=== PATIENT | female | born 1945 | race Caucasian/White ===

== ENCOUNTER 2016-10-12 18:52 | Emergency (ER) | payer MEDICARE ==
[2016-10-12 20:29] VITALS: BP 152/92
--- NOTE | 2016-10-12 20:34 | ER Document Report ---
ED Medical Screen (RME) - General Stated Complaint: FEVER/HEADACHE Mode of Arrival: Ambulatory Information source: Patient Notes: 71-year-old female presents to the emergency department complaining of intermittently persistent chills, headache, dysuria, and lower back pain over the last 2 days. Reports similar symptoms usually due to UTIs. States has been taking Azo tabs at home with no improvement. I have greeted and performed a rapid initial assessment of this patient. A comprehensive ED assessment and evaluation of the patient, analysis of test results and completion of the medical decision making process will be conducted by additional ED providers. TRAVEL OUTSIDE OF THE [place] IN LAST 30 DAYS: No - Related Data Allergies/Adverse Reactions: amoxicillin [Amoxicillin] Allergy (Verified 10/12/16 20:29) ciprofloxacin [From Cipro] Allergy (Verified 10/12/16 20:29) ciprofloxacin HCl [From Cipro] Allergy (Verified 10/12/16 20:29) digoxin [Digoxin] Allergy (Verified 10/12/16 20:29) diphenhydramine HCl [From Benadryl] Allergy (Verified 10/12/16 20:29) epinephrine [Epinephrine] Allergy (Verified 10/12/16 20:29) erythromycin base [Erythromycin Base] Allergy (Verified 10/12/16 20:29) ibuprofen [From Advil] Allergy (Verified 10/12/16 20:29) iodine [Iodine] Allergy (Verified 10/12/16 20:29) losartan [Losartan] Allergy (Verified 10/12/16 20:29) methyldopa [Methyldopa] Allergy (Verified 10/12/16 20:29) naproxen [From Naprosyn] Allergy (Verified 10/12/16 20:29) NSAIDS (Non-Steroidal Anti-Inflamma [Nsaids] Allergy (Verified 10/12/16 20:29) Penicillins Allergy (Verified 10/12/16 20:29) propoxyphene HCl [From Darvon] Allergy (Verified 10/12/16 20:29) Sulfa (Sulfonamide Antibiotics) Allergy (Verified 10/12/16 20:29) Past Medical History - Social History Chew tobacco use (# tins/day): No Frequency of alcohol use: None Drug Abuse: None - Past Medical History Cardiac Medical History: Reports: Hx Atrial Fibrillation, Hx Hypertension Renal/ Medical History: Denies: Hx Peritoneal Dialysis GI Medical History: Reports: Hx Gastroesophageal Reflux Disease Past Surgical History: Reports: Hx Abdominal Surgery - hernia repair, Hx Appendectomy, Hx Breast Surgery - Lt tumor removed: benign, Hx Gynecologic Surgery - desending aorta "nicked" during vaginal , Hx Tonsillectomy, Hx Tubal Ligation, Hx Vascular Surgery - Lt leg Physical Exam - Vital signs Vitals: Temp Pulse Resp BP Pulse Ox 98.1 F 92 16 152/92 H 93 10/12/16 20:25 10/12/16 20:25 10/12/16 20:25 10/12/16 20:25 10/12/16 20:25 - General General appearance: Appears well, Alert In distress: None - Respiratory Respiratory status: No respiratory distress Course - Vital Signs Vital signs: Temp Pulse Resp BP Pulse Ox 98.1 F 92 16 152/92 H 93 10/12/16 20:25 10/12/16 20:25 10/12/16 20:25 10/12/16 20:25 10/12/16 20:25
[2016-10-12 23:17] LABS: APPEARANCE,URINE CLEAR; BILIRUBIN,URINE NEGATIVE (NEGATIVE); GLUCOSE, URINE NEGATIVE (NEGATIVE); KETONES,URINE NEGATIVE (NEGATIVE); LEUKOCYTE ESTERASE,URINE TRACE (NEGATIVE); NITRITE,URINE POSITIVE (NEGATIVE); PROTEIN,URINE NEGATIVE (NEGATIVE); URINE SPECIFIC GRAVITY 1.012
[2016-10-13] MEDS ORDERED: CEFTRIAXONE INJ 1000 MG VIAL IM ONE (00:02)
[2016-10-13] MEDS ORDERED: LIDOCAINE 1% INJ-PF (10 MG/ML) 30 ML SDV INFIL ONE (00:02)
--- NOTE | 2016-10-13 00:07 | ER Document Report ---
ED General - General Chief Complaint: Fever Stated Complaint: FEVER/HEADACHE Mode of Arrival: Ambulatory Notes: Patient is a 71-year-old female presents with complaints of fever yesterday. She then also had slight soreness in her back is worse in the right side. So her kidney on the right side. She then developed some dysuria and some pain in the suprapubic region. She's had continued pain in the suprapubic region throat the day. She took a zone it did not help. She decided come to the ER. She did have some nasal congestion and cough but this was over a week ago and the symptoms have since resolved. No vomiting. No diarrhea. Mild headache when she had a fever but this is also since resolved. She says her symptoms very feel very similar to urinary tract infection as she has had these in the past. She says Keflex as worked well for her in the past. She has no other complaints at this time. Patient has previous history of appendectomy and tubal ligation. TRAVEL OUTSIDE OF THE [place] IN LAST 30 DAYS: No - Related Data Allergies/Adverse Reactions: amoxicillin [Amoxicillin] Allergy (Verified 10/12/16 20:29) ciprofloxacin [From Cipro] Allergy (Verified 10/12/16 20:29) ciprofloxacin HCl [From Cipro] Allergy (Verified 10/12/16 20:29) digoxin [Digoxin] Allergy (Verified 10/12/16 20:29) diphenhydramine HCl [From Benadryl] Allergy (Verified 10/12/16 20:29) epinephrine [Epinephrine] Allergy (Verified 10/12/16 20:29) erythromycin base [Erythromycin Base] Allergy (Verified 10/12/16 20:29) ibuprofen [From Advil] Allergy (Verified 10/12/16 20:29) iodine [Iodine] Allergy (Verified 10/12/16 20:29) losartan [Losartan] Allergy (Verified 10/12/16 20:29) methyldopa [Methyldopa] Allergy (Verified 10/12/16 20:29) naproxen [From Naprosyn] Allergy (Verified 10/12/16 20:29) NSAIDS (Non-Steroidal Anti-Inflamma [Nsaids] Allergy (Verified 10/12/16 20:29) Penicillins Allergy (Verified 10/12/16 20:29) propoxyphene HCl [From Darvon] Allergy (Verified 10/12/16 20:29) Sulfa (Sulfonamide Antibiotics) Allergy (Verified 10/12/16 20:29) Past Medical History - General Information source: Patient - Social History Smoking Status: Never Smoker Chew tobacco use (# tins/day): No Frequency of alcohol use: None Drug Abuse: None Family History: None Patient has suicidal ideation: No Patient has homicidal ideation: No - Past Medical History Cardiac Medical History: Reports: Hx Atrial Fibrillation, Hx Hypertension Renal/ Medical History: Denies: Hx Peritoneal Dialysis GI Medical History: Reports: Hx Gastroesophageal Reflux Disease Past Surgical History: Reports: Hx Abdominal Surgery - hernia repair, Hx Appendectomy, Hx Breast Surgery - Lt tumor removed: benign, Hx Gynecologic Surgery - desending aorta "nicked" during vaginal , Hx Tonsillectomy, Hx Tubal Ligation, Hx Vascular Surgery - Lt leg Review of Systems - Review of Systems Notes: My Normal Review Basic REVIEW OF SYSTEMS: CONSTITUTIONAL : Denies fever, chills, or sweats. Denies recent illness. EENT: Denies eye, ear, throat, or mouth pain or symptoms. Denies nasal or sinus congestion. RESPIRATORY: Denies cough, cold, or chest congestion. Denies shortness of breath, difficulty breathing, or wheezing. GASTROINTESTINAL: Denies abdominal pain. Denies nausea, vomiting, or diarrhea. Denies constipation. Last BM: GENITOURINARY: Dysuria. Suprapubic pain. MUSCULOSKELETAL: Costovertebral angle tenderness. SKIN: Denies rash or skin lesions. NEUROLOGICAL: Denies altered mental status or loss of consciousness. Denies headache. Denies weakness or paralysis or loss of use of either side. Denies problems with gait or speech. Denies sensory or motor loss. ALL OTHER SYSTEMS REVIEWED AND NEGATIVE. Physical Exam - Vital signs Vitals: Temp Pulse Resp BP Pulse Ox 98.1 F 88 16 152/92 H 93 10/12/16 20:21 10/12/16 20:21 10/12/16 20:21 10/12/16 20:21 10/12/16 20:21 - Notes Notes: General Appearance: Well nourished, alert, cooperative, no acute distress, no obvious discomfort. Well-appearing. Vitals: reviewed, See vital signs table. Head: no swelling or tenderness to the head Eyes: PERRL, EOMI, Conjuctiva clear Mouth: No decreasd moisture Throat: No tonsillar inflammation, No airway obstruction, No lymphadenopathy Neck: Supple, no neck tenderness, No thyromegaly Lungs: No wheezing, No rales, No rhonci, No accessory muscle use, good air exchange bilaterally. Heart: Normal rate, Regular rythm, No murmur, no rub Abdomen: Normal BS, soft, No rigidity, focal suprapubic abdominal tenderness. No pain in the right or left lower quadrant., No guarding, no rebound, no abdominal masses, no organomegaly Back: Positive Brad's on the right. No midline tenderness to the back. Extremities: strength 5/5 in all extremities, good pulses in all extremities, no swelling or tenderness in the extremities, no edema. Skin: warm, dry, appropriate color, no rash Neuro: speech clear, oriented x 3, normal affect, responds appropriately to questions. Course - Vital Signs Vital signs: Temp Pulse Resp BP Pulse Ox 98.1 F 92 16 152/92 H 93 10/12/16 20:25 10/12/16 20:25 10/12/16 20:25 10/12/16 20:25 10/12/16 20:25 - Laboratory Laboratory results interpreted by me: 10/12/16 22:00 Urine Nitrite POSITIVE H Urine Urobilinogen 4.0 H Ur Leukocyte Esterase TRACE H Urine Ascorbic Acid 40 H - Transfer of Care Notes: 10/13/16 00:06 Patient has symptoms consistent with a urinary tract infection. Urinalysis does not have lot white blood cells but does have positive nitrates. We will start her out with a shot of Rocephin and will place her on Keflex. I strongly encouraged her to return to the ER if she has recurrent fevers or feels that her symptoms are worsening in any way. She'll follow-up with Dr. Caldera Saturday. Patient agrees with plan will be discharged home. Dictation of this chart was performed using voice recognition software; therefore, there may be some unintended grammatical errors. Discharge - Discharge Clinical Impression: UTI (urinary tract infection) Qualifiers: Urinary tract infection type: site unspecified Hematuria presence: without hematuria Qualified Code(s): N39.0 - Urinary tract infection, site not specified Condition: Good Disposition: HOME, SELF-CARE Additional Instructions: URINARY TRACT INFECTION: Your evaluation indicates that you have a urinary tract infection. This is due to germs growing in the bladder. This is a common problem. This infection usually responds quickly to antibiotics. Your antibiotic should be taken exactly as prescribed. Drink plenty of fluids -- three to four quarts a day. Occasionally, a bladder anesthetic will be prescribed to help stop the feeling of urgency until the antibiotic has a chance to clear the infection. This may cause your urine to be dark orange. Certain urine infections require a culture. If the doctor obtained a culture, the results will be back in two days. You should call to see if a change in treatment is needed. A repeat urinalysis after you finish treatment is often recommended. The physician will let you know if further testing is required. Call the doctor if you develop fever, chills, flank pain, inability to urinate, or blood in the urine. ANTIBIOTIC THERAPY: You have been given an antibiotic prescription. It's important that you take all the medication, unless instructed otherwise by your physician. Failure to complete the entire course can result in relapse of your condition. Common side effects of antibiotics include nausea, intestinal cramping, or diarrhea. Women may develop vaginal yeast infections, and babies can get yeast (thrush) in the mouth following the use of antibiotics. Contact your physician if you develop significant side effects from this medication. Allergy to this antibiotic can result in hives, wheezing, faintness, or itching. If symptoms of allergy occur, stop the medication and call the doctor. CEPHALEXIN: The antibiotic you've been prescribed is a member of the cephalosporin class. This type of antibiotic covers a wide variety of infections, including those of the skin, lungs, and urinary tract. It's useful for staph infections. This antibiotic is slightly similar to the penicillin family. In rare cases , a person who is allergic to penicillin will also be allergic to this medication. If you have had a severe allergic reaction to penicillin, and have not taken this antibiotic since that time, notify your doctor. Antibiotics which cover many germs ("broad spectrum" antibiotics) are more likely to cause diarrhea or "yeast" infections. Women prone to vaginal yeast problems may suffer an attack after taking this antibiotic. In infants, oral thrush (white spots "stuck" on the cheek) or yeast diaper rash may result. See your doctor if these problems occur. Call at once if you develop itching, hives , shortness of breath, or lightheadedness. FOLLOW-UP CARE: If you have been referred to a physician for follow-up care, call the physician s office for an appointment as you were instructed or within the next two days. If you experience worsening or a significant change in your symptoms, notify the physician immediately or return to the Emergency Department at any time for re-evaluation. Please have a low threshold to return to ER immediately if you have recurrent fevers, worsening pain, vomiting, or feel that your symptoms are worsening in any way. With the treatment given to you here your symptoms should start improving in 1-2 days. Please follow-up with Dr. Caldera on Saturday for reevaluation. Prescriptions: Cephalexin Monohydrate [Keflex 500 mg Capsule] 500 mg PO QID #28 capsule Referrals: MARYCARMEN CALDERA MD [Primary Care Provider] - 10/15/16
== END 2016-10-13 01:23 | disposition home or self-care (01) ==
LOC: ER 18:52
DX: N39.0 Urinary tract infection, site not specified (principal); R50.9 Fever, unspecified; R09.81 Nasal congestion; R05 Cough; R51 Headache; I10 Essential (primary) hypertension; Z88.0 Allergy status to penicillin; Z88.1 Allergy status to other antibiotic agents; Z90.49 Acquired absence of other specified parts of digestive tract; Z98.51 Tubal ligation status; Z88.8 Allergy status to other drugs, medicaments and biological substances; Z88.6 Allergy status to analgesic agent; Z88.3 Allergy status to other anti-infective agents; Z88.2 Allergy status to sulfonamides
CPT/HCPCS: 81001; 87086; 87088; 87186; 99283

== ENCOUNTER → 2016-12-28 | Outpatient (CLI) | payer MEDICARE | LOC: WI 08:06 | PROVIDERS: ATTEND Physician Assistant | DX: N64.4 Mastodynia (principal); N64.52 Nipple discharge; N63 Unspecified lump in breast | CPT/HCPCS: 76642; G0204; 77066 ==

== ENCOUNTER 2017-02-20 07:31 | Day surgery (SDC) | payer MEDICARE ==
--- NOTE | 2017-02-13 17:04 | EKG REPORT ---
SEVERITY:- NORMAL ECG - SINUS RHYTHM : Confirmed by: Dorcas Kemp MD 13-Feb-2017 17:03:49
[~2017-02-20 07:31] MED LIST: CLINDAMYCIN 600 MG/D5W RTU 600 MG/50 ML RTUPB IV PRN; CLINDAMYCIN PHOSPHATE 500 MG in DEXTROSE 5%-WATER 50 ML IV PRN; LACTATED RINGERS 1000 ML IV PRN; LIDOCAINE 0.5% INJ-PF (5 MG/ML) 50 ML SDV SUBCUT PRN; LIDOCAINE 4% TRANSPARENT DRESSING 5 GM KIT TP PRN
[2017-02-20] MEDS ORDERED: SUCCINYLCHOLINE CHLORIDE INJ 200 MG/10 ML VIAL ONE (08:40)
[2017-02-20] MEDS ORDERED: ONDANSETRON HCL INJ/PF 4 MG/2 ML SDV ONE ×2 (08:40→09:35)
[2017-02-20] MEDS ORDERED: GLYCOPYRROLATE INJ 0.4 MG/2 ML VIAL ONE (08:40)
[2017-02-20] MEDS ORDERED: LIDOCAINE 2% INJ-PF (20 MG/ML) 10 ML AMPUL ONE (08:40)
[2017-02-20] MEDS ORDERED: ROCURONIUM BROMIDE INJ 50 MG/5 ML VIAL IV ONE (08:40)
[2017-02-20] MEDS ORDERED: DEXAMETHASONE SOD PHOSPHATE INJ 4 MG/1 ML VIAL ONE (08:40)
[2017-02-20] MEDS ORDERED: MIDAZOLAM 2 MG/2 ML INJ ONE ×2 (11:04→11:40)
--- NOTE | 2017-02-20 11:08 | RADIOLOGY REPORT (SQ) ---
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 The route of agent administration: Subcutaneous in the skin. TECHNIQUE: The skin of the left breast was prepped in sterile fashion. The radiopharmaceutical was administered in equally divided doses in the periareolar breast. LIMITATIONS: None. FINDINGS: Images demonstrate activity at the injection site. A left axillary lymph node was marked. IMPRESSION: ADMINISTRATION OF RADIOPHARMACEUTICAL FOR SENTINEL LYMPH NODE EVALUATION. TECHNICAL DOCUMENTATION: JOB ID: [id number] [employer]- All Rights Reserved
[2017-02-20] MEDS ORDERED: FENTANYL CITRATE INJ/PF 250 MCG/5 ML AMPULE ONE (11:40)
[2017-02-20] MEDS ORDERED: FENTANYL CITRATE INJ/PF 100 MCG/2 ML AMPUL ONE (11:40)
[2017-02-20] MEDS ORDERED: PROPOFOL INJ 200 MG/20 ML VIAL IV ONE (11:41)
[2017-02-20] MEDS ORDERED: MORPHINE SULFATE 10 MG/ML INJ ONE (11:41)
[2017-02-20] MEDS ORDERED: ACETAMINOPHEN 100 ML IV ONE (11:41)
[2017-02-20] MEDS ORDERED: METHYLENE BLUE 50 MG/10 ML AMPULE ONE (12:10)
[2017-02-20] MEDS ORDERED: LIDOCAINE 1%/EPINEPHRINE INJ 20 ML VIAL ONE (12:11)
[2017-02-20] MEDS ORDERED: PROMETHAZINE HCL INJ 25 MG/1 ML VIAL IV PRN ×2 (13:52)
[2017-02-20] MEDS ORDERED: FENTANYL CITRATE INJ/PF 100 MCG/2 ML AMPUL IV PRN ×3 (13:52)
[2017-02-20] MEDS ORDERED: OXYCODONE-ACETAMINOPHEN 5-325 MG TABLET PO PRN ×2 (13:52)
[2017-02-20] MEDS ORDERED: MEPERIDINE HCL/PF INJ 25 MG/1 ML DISP.SYRIN IV PRN (13:52)
[2017-02-20] MEDS ORDERED: MORPHINE SULFATE 10 MG/ML INJ IV PRN (13:52)
[2017-02-20] MEDS ORDERED: DIPHENHYDRAMINE HCL 50 MG/ML VIAL IV PRN (13:52)
[2017-02-20] MEDS ORDERED: MICROFIBRILLAR COLLAGEN 1 GM PACK ONE (14:52)
--- NOTE | 2017-02-20 15:29 | Operative Report ---
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 [place] lymph node biopsy left axilla 3 using dual mapping technique. 2. Ultrasound directed left central lumpectomy with drain placement SURGEON: CONNIE MILES SUBSTATION ELECTRICIAN SUPERVISOR: MIRNA WILDER ANESTHESIA: GA TISSUE REMOVED OR ALTERED: [place] lymph node left axilla 3; left breast central lumpectomy COMPLICATIONS: None ESTIMATED BLOOD LOSS: Scant INTRAOPERATIVE FINDINGS: See below PROCEDURE: The patient was seen in the preop holding area where the left breast was marked. She previously underwent technetium 99 sulfur colloid lymphoscintigraphy of the left axilla. She had areas of increased uptake based on imaging into the left axilla. The patient was taken to the operating room where general anesthesia was induced left arm was abducted. Left breast was exposed. We proceeded with dilute methylene blue injection using a 25-gauge needle into the upper outer quadrant periareolar region of the left breast with approximately 1 and 1/2 cc of contrast. The left breast was then massaged for 5 minutes, than the left breast and axilla were prepped draped sterile fashion. Surgical plan and surgical timeout were conducted. We approached the left axilla first for sentinel node biopsy. A small incision was made after anesthetizing the skin with 1% plain lidocaine. Incision was at the base of the left axilla. We proceeded with sentinel lymph node harvesting. First sentinel lymph node was hot and blue with an in vivo count of 38,591. The ex vivo count was 8366. This is a level 1 nodes. The second lymph node was blue and hot with the in vivo count of 3041 and ex vivo count of 1586. All nodes were harvested using electrocautery and clips. The final sentinel lymph node was hot not blue with an ex vivo count of 181. We had background counts fluctuating between 80 and 500 counts. We felt the sentinel lymph node harvest was complete. We now placed the left axilla. It was scanned with a variable frequency linear transducer and the left breast mass at the 830 9 o'clock position of the areolar border, with previously placed biopsy clip was appreciated. We marked on the skin plans for a left central mastectomy to include the left breast mass , as well as any involved dilated ducts. The marking was approximately 14 cm long and 8 cm cranial caudal direction. The ellipse was made with a #10 blade, limited tissue flaps are raised and the level dissection taken down to the midportion of the breast. We did encounter fibrocystic changes during the excision. The lumpectomy specimen was removed from the left breast, labeled with seizures short in the superior position long lateral position. Ex vivo ultrasonography of the specimen showed the return mass and clip. The specimen was then sent to radiology where it was imaged and found to contain the mass and the clip inside the mass. Dr. Rueda felt the microcalcifications were close to the border of the specimen. I then reviewed the specimen with the radiologist real-time in the pathology lab. He felt grossly that the mass was excised and our margins were grossly negative. Return to the operating room and participate in the closure of the incisions after hemostasis was achieved. Avitene was placed in the recesses of the left axillary incision. The left breast cavity was drained with a large Primo drain placed in the inframammary fold and secured to the skin with 2-0 Prolene suture. This was a large Primo drain. Both incisions were closed with a running subcuticular 2-0 Vicryl suture and skin approximated with the Dermabond glue Postop procedure well, extubated and taken to recovery in stable condition. MATEO Wilder assisted with exposure, and wound closure. There was no general surgeon available to executive staff assistant.
--- NOTE | 2017-02-20 15:33 | PDOC DISCHARGE SUMMARY ---
Discharge Summary (SDC) - Discharge Final Diagnosis: DCIS and central lumpectomy Date of Surgery: 02/20/17 Discharge Date: 02/20/17 Condition: Stable Treatment or Instructions: [facility] [address] [place] [id number] Care Instructions Following Your Mastectomy Activities: Resume normal activities when you feel comfortable. It is best to remain as active as possible to speed your recovery. It is common to experience some fatigue after surgery and you may find that short naps are helpful. Avoid strenuous activity such as weight lifting, tennis, etc at your surgical site for two weeks. Perform gentle arm exercises daily and do not favor your operative arm to due increased risk of mobility issues postoperatively. No driving for 7 days after surgery. Do not drive if you are taking pain medication other than Tylenol or Ibuprofen. No swimming, tub baths or soaking in a hot tub for 4 weeks. There are no dietary restrictions. Do not smoke as this impairs wound healing. Surgical Site care: You may shower after 48 hours. Do not scrub the incision. Pat the area dry with a towel. Leave the skin glue intact until it falls off on its own. You do not need to recover the wound although some patients find that they feel more comfortable using a light dressing for a few days to absorb any minimal drainage which may occur. Many patients also find that keeping a dressing around the drain exit site is helpful to absorb any drainage which may leak around the tubing. If you use a dressing in this manner change it at least every day. Do not use heating pad or apply an ice pack to the operative site. You may apply deodorant if you are careful to avoid getting it on the wound itself. Empty the bulbs attached to the drain every 12 hours and measure the fluid output separately from each drain. Please also strip each drain each time you empty it to prevent clogging. Keep a record of the output and bring this record with you each time you come to the office for postoperative care. A drain is ready to be removed when its output is 30 mL per 24 hours per drain for 2 consecutive days. Please call the office to inform our staff that you need to come in for drain removal. Medications: Take Motrin (ibuprofen) 600 mg to 800 mg every 8 hours around the clock. You may taper this medication as you experience less pain. Take narcotic pain control such as Tylenol #3 or Percocet one to tablets every six hours as needed for breakthrough pain. Do not take over the counter Tylenol if you are taking either Tylenol #3 or Percocet. Again, you cannot drive while taking narcotic pain medication. Resume all of your normal prescription medications after your surgery unless instructed otherwise. You may experience constipation after surgery while taking pain medications. If using a narcotic on a regular basis, take a stool softener such as Colace twice a day. It is helpful to stay hydrated by drinking lots of fluids. Walking is also helpful and is good exercise after surgery. If you need extra help, use Milk of Magnesia according to the directions on the package. Follow-up: Call our office at to make a follow-up appointment in 10-14 days. Your doctor will call to discuss the pathology report with you as soon as it is available. Concerns: If you had a sentinel lymph node biopsy with your mastectomy, your urine may have a greenish discoloration. This is normal and will resolve as the blue dye slowly leaves your system. If you notice significant leakage around the drains , this is not normal. The drains may be clogged. Please call our office to come in immediately for the drains to be checked. Some bruising may occur and will go away over time. If you have a fever of 101.5 or greater, chills, redness at the incision site, excessive drainage from your wound or severe pain not relieved by pain medication, call your doctor. A physician is available 24 hours a day 7 days a week in addition to regular office hours. If problems arise after normal office hours please call the hospital at . Please call if you have any questions or concerns. Prescriptions: Oxycodone HCl/Acetaminophen [Percocet 5-325 mg Tablet] 1 tab PO ASDIR PRN #20 tab PRN Reason: Discharge Diet: As Tolerated Discharge Activity: Activity As Tolerated - no excessive movement of left arm Report the Following to Your Physician Immediately: Vomiting, Fever over 101 Degrees, Redness, Swelling, Drainage-Foul Smelling
[2017-02-20] MEDS: FENTANYL CITRATE INJ/PF 100 MCG/2 ML AMPUL ONE ×3 (15:35→15:45)
--- NOTE | 2017-02-20 15:36 | WOMENS IMAGING REPORT ---
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 LIMITATIONS: None. FINDINGS: Specimen radiograph from breast procedure performed in the operating room. Specimen contains a ultrasound-guided clip in a small 11 mm nodule. There are surrounding pleomorphi c calcifications which extend to the edge of the specimen. Findings were discussed with Dr. Escalera . Please see procedure note for details and final pathology. IMPRESSION: Specimen radiograph. TECHNICAL DOCUMENTATION: JOB ID: [id number]
[2017-02-20] MEDS ORDERED: OXYCODONE-ACETAMINOPHEN 5-325 MG TABLET PO ONE (16:15)
[2017-02-20] MEDS ORDERED: METOCLOPRAMIDE HCL INJ/PF 10 MG/2 ML SDV ONE (17:14)
[2017-02-20 18:22] VITALS: BP 159/77
[2017-02-20] MEDS ORDERED: DEXTROSE 5%-NORMAL SALINE 250 ML IV ONE (18:30)
== END 2017-02-20 18:15 | disposition home or self-care (01) ==
LOC: OROUT 07:31
PROVIDERS: ATTEND Surgery
PROC: 07B60ZX Excision of Left Axillary Lymphatic, Open Approach, Diagnostic (ICD-10-PCS; 2017-02-20)
PROC: 0HBU0ZZ Excision of Left Breast, Open Approach (ICD-10-PCS; principal; 2017-02-20 11:30)
DX: D05.12 Intraductal carcinoma in situ of left breast (principal); I10 Essential (primary) hypertension; Z88.8 Allergy status to other drugs, medicaments and biological substances; Z88.2 Allergy status to sulfonamides; Z88.0 Allergy status to penicillin; Z79.899 Other long term (current) drug therapy
CPT/HCPCS: 93005; 36415; 84132; 88342 ×2; 88341 ×2; 88307 ×2; 78195; 93010; 76098; 19301; 38500; A9520; J2250; J3490 ×5; J1100; J3010 ×2; J2765; A9270; J0330; J2405; J2704; J0131; Q9968; 1610; J2270

== ENCOUNTER → 2017-03-14 | Outpatient (CLI) | payer MEDICARE ==
[2017-03-14 12:41] LABS: ABSOLUTE BASOPHILS # (AUTO) 0.1 10^3/uL (0.0-0.2); ABSOLUTE EOSINOPHILS # (AUTO) 0.1 10^3/uL (0.0-0.6); ABSOLUTE LYMPHOCYTES (AUTO) 2.2 10^3/uL (0.5-4.7); ABSOLUTE MONOCYTES (AUTO) 0.6 10^3/uL (0.1-1.4); ABSOLUTE NEUT (AUTO) 4.7 10^3/uL (1.7-8.2); EOSINOPHILS % (AUTO) 1.6 % (0-6); HEMATOCRIT 43.2 % (36.0-47.0); HEMOGLOBIN 14.3 g/dL (12.0-15.5); HGB HCT DIFFERENCE -0.3; LYMPHOCYTES % (AUTO) 28.6 % (13-45); MEAN CORPUSCULAR VOLUME 88 fl (80-97); MONOCYTES % (AUTO) 8.3 % (3-13); RED BLOOD COUNT 4.91 10^6/uL (3.72-5.28); RED CELL DISTRIBUTION WIDTH 15.2 % (11.5-14.0); SEGMENTED NEUTROPHILS % (AUTO) 60.5 % (42-78); WHITE BLOOD COUNT 7.7 10^3/uL (4.0-10.5)
[2017-03-14 13:00] LABS: ALANINE AMINOTRANSFERASE 36 U/L (9-52); ALBUMIN 4.5 g/dL (3.5-5.0); ALKALINE PHOSPHATASE 69 U/L (38-126); ASPARTATE AMINO TRANSFERASE 19 U/L (14-36); BILIRUBIN,DIRECT 0.2 mg/dL (0.0-0.4); BILIRUBIN,TOTAL 0.5 mg/dL (0.2-1.3); TOTAL PROTEIN 7.3 g/dL (6.3-8.2)
== END ==
LOC: OD 11:43
PROVIDERS: ATTEND Radiology Radiation Oncology
DX: D05.12 Intraductal carcinoma in situ of left breast (principal); Z17.0 Estrogen receptor positive status [ER+]; Z79.899 Other long term (current) drug therapy
CPT/HCPCS: 36415; 80076; 85025

== ENCOUNTER 2017-05-01 19:16 | Emergency (ER) | payer MEDICARE ==
--- NOTE | 2017-05-01 19:50 | ER Document Report ---
ED ENT - General Chief Complaint: Other Stated Complaint: DIFFICULTY BREATHING Time Seen by Provider: 05/01/17 19:42 Notes: Patient is a 72-year-old female comes emergency department for chief complaint of a beef bone stuck in her throat. She states that she put beef bones in her stool for flavoring and accidentally swallowed one at 6:30 PM tonight. She reports pain and difficulty speaking. She states she tried to get herself but was unable to get the bone out. She denies any bleeding or any other symptoms. She does not take a blood thinner. She just completed radiation for breast cancer several days ago. Denies any other medical history. TRAVEL OUTSIDE OF THE [place] IN LAST 30 DAYS: No - Related Data Allergies/Adverse Reactions: amoxicillin [Amoxicillin] Allergy (Verified 05/01/17 19:26) ciprofloxacin [From Cipro] Allergy (Verified 05/01/17 19:26) ciprofloxacin HCl [From Cipro] Allergy (Verified 05/01/17 19:26) digoxin [Digoxin] Allergy (Verified 05/01/17 19:26) diphenhydramine HCl [From Benadryl] Allergy (Verified 05/01/17 19:26) epinephrine [Epinephrine] Allergy (Verified 05/01/17 19:26) erythromycin base [Erythromycin Base] Allergy (Verified 05/01/17 19:26) iodine [Iodine] Allergy (Verified 05/01/17 19:26) losartan [Losartan] Allergy (Verified 05/01/17 19:26) methyldopa [Methyldopa] Allergy (Verified 05/01/17 19:26) naproxen [From Naprosyn] Allergy (Verified 05/01/17 19:26) NSAIDS (Non-Steroidal Anti-Inflamma [Nsaids] Allergy (Verified 05/01/17 19:26) Penicillins Allergy (Verified 05/01/17 19:26) propoxyphene HCl [From Darvon] Allergy (Verified 05/01/17 19:26) Seizure Sulfa (Sulfonamide Antibiotics) Allergy (Verified 05/01/17 19:26) Past Medical History - General Information source: Patient - Social History Smoking Status: Never Smoker Frequency of alcohol use: None Drug Abuse: None Lives with: Family Family History: None - Past Medical History Cardiac Medical History: Reports: Hx Atrial Fibrillation, Hx Hypertension Denies: Hx Coronary Artery Disease, Hx Heart Attack Pulmonary Medical History: Denies: Hx Asthma, Hx Bronchitis, Hx COPD, Hx Pneumonia Neurological Medical History: Denies: Hx Cerebrovascular Accident, Hx Seizures Renal/ Medical History: Denies: Hx Peritoneal Dialysis GI Medical History: Reports: Hx Gastroesophageal Reflux Disease Musculoskeltal Medical History: Denies Hx Arthritis Past Surgical History: Reports: Hx Abdominal Surgery - hernia repair, Hx Appendectomy, Hx Breast Surgery - Lt tumor removed: benign, Hx Gynecologic Surgery - desending aorta "nicked" during vaginal , Hx Tonsillectomy, Hx Tubal Ligation, Hx Vascular Surgery - Lt leg - Immunizations Hx Diphtheria, Pertussis, Tetanus Vaccination: Yes - 3 YEARS AGO Review of Systems - Review of Systems Constitutional: No symptoms reported EENT: See HPI Cardiovascular: No symptoms reported Respiratory: No symptoms reported Gastrointestinal: No symptoms reported Genitourinary: No symptoms reported Female Genitourinary: No symptoms reported Musculoskeletal: No symptoms reported Skin: No symptoms reported Hematologic/Lymphatic: No symptoms reported Neurological/Psychological: No symptoms reported Physical Exam - Vital signs Vitals: Temp Pulse Resp BP Pulse Ox 98.7 F 109 H 20 153/85 H 93 05/01/17 19:26 05/01/17 19:26 05/01/17 19:26 05/01/17 19:26 05/01/17 19:26 Interpretation: Normal - General General appearance: Appears well, Alert, Anxious In distress: None - HEENT Head: Normocephalic, Atraumatic Eyes: Normal Conjunctiva: Normal Extraocular movements intact: Yes Eyelashes: Normal Pupils: PERRL Nasal: Normal Mouth/Lips: Normal Mucous membranes: Normal Pharynx: Normal Neck: Normal - Respiratory Respiratory status: No respiratory distress Chest status: Nontender Breath sounds: Normal. No: Decreased air movement, Stridor Chest palpation: Normal - Cardiovascular Rhythm: Regular Heart sounds: Normal auscultation Murmur: No - Abdominal Inspection: Normal Distension: No distension Bowel sounds: Normal Tenderness: Nontender Organomegaly: No organomegaly - Back Back: Normal, Nontender - Extremities General upper extremity: Normal inspection, Nontender, Normal color, Normal ROM , Normal temperature General lower extremity: Normal inspection, Nontender, Normal color, Normal ROM , Normal temperature, Normal weight bearing. No: Jarad's sign - Neurological Neuro grossly intact: Yes Cognition: Normal Orientation: AAOx4 Irvona Coma Scale Eye Opening: Spontaneous Irvona Coma Scale Verbal: Oriented Sandy Coma Scale Motor: Obeys Commands Sandy Coma Scale Total: 15 Speech: Normal Motor strength normal: LUE, RUE, LLE, RLE Sensory: Normal - Psychological Associated symptoms: Normal affect, Normal mood, Anxious - Skin Skin Temperature: Warm Skin Moisture: Dry Skin Color: Normal Course - Re-evaluation Re-evalutation: Patient nervous appearing but does not appear to be in distress. No hypoxia. Clear lungs on auscultation. Patient points specifically to her neck and upper throat as the area where she feels discomfort. Imaging performed to the searching for the bony foreign body patient describes swallowing, however nothing was seen in this area on the imaging. Patient denying any pain in her chest, back, or abdomen I gave patient water and she drank this without any difficulty. I gave patient viscous lidocaine and symptoms completely resolved. I suspect patient has an abrasion but I do not suspect a foreign body. Discussed this with patient in detail. Discussed follow-up and return precautions. Patient states understanding and agreement. - Vital Signs Vital signs: Temp Pulse Resp BP Pulse Ox 98.7 F 109 H 20 146/68 H 91 L 05/01/17 19:26 05/01/17 19:26 05/01/17 21:01 05/01/17 21:00 05/01/17 21:01 Discharge - Discharge Clinical Impression: Throat pain Swallowed foreign body Qualifiers: Encounter type: initial encounter Qualified Code(s): T18.9XXA - Foreign body of alimentary tract, part unspecified, initial encounter Condition: Stable Disposition: HOME, SELF-CARE Additional Instructions: No lodged bony foreign body is seen on imaging. You most likely swallowed it and it caused a wound or irritation to the area. This should heal with time. Follow-up with your primary care. I recommend soft foods for the first couple of days. Return to the emergency department immediately if he develop any concerning worsening symptoms including vomiting blood, chest pain, abdominal pain, or any other concerning symptoms. Referrals: MARYCARMEN CALDERA MD [Primary Care Provider] - Follow up as needed
--- NOTE | 2017-05-01 20:23 | RADIOLOGY REPORT (SQ) ---
EXAM DESCRIPTION: SOFT TISSUE NECK COMPLETED DATE/TIME: 05/01/2017 8:06 pm REASON FOR STUDY: ? beef bone stuck in throat COMPARISON: None. NUMBER OF VIEWS: Two views. TECHNIQUE: AP and lateral radiographic image of the soft tissues of the neck. LIMITATIONS: None. FINDINGS: EPIGLOTTIS: Normal. Contour normal. Aryepiglottic folds normal. PREVERTEBRAL SOFT TISSUES: Normal. No soft tissue swelling. SUBGLOTTIC AREA: Normal. No narrowing. RETROPHARYNGEAL SPACE: Normal. No soft tissue masses. BONES: No significant findings. LUNG APICES: Normal. OTHER: No radiopaque foreign body. No other significant finding. IMPRESSION: No radiopaque foreign bodies are demonstrated. TECHNICAL DOCUMENTATION: JOB ID: [id number] [employer]- All Rights Reserved
[2017-05-01] MEDS ORDERED: MAG HYDROX/AL HYDROX/SIMETH SUSP 30 ML UDCUP PO ONE (20:48)
[2017-05-01] MEDS ORDERED: LIDOCAINE 2% VISCOUS SOLN 20 ML UDCUP PO ONE (20:48)
[2017-05-01 21:58] VITALS: BP 146/68
== END 2017-05-01 22:08 | disposition home or self-care (01) ==
LOC: ER 19:16
DX: T18.9XXA Foreign body of alimentary tract, part unspecified, initial encounter (principal); R07.0 Pain in throat; R06.02 Shortness of breath; X58.XXXA Exposure to other specified factors, initial encounter
CPT/HCPCS: 99283; 70360; J3490

== ENCOUNTER 2017-10-13 08:28 | Emergency (ER) | payer MEDICARE ==
[2017-10-13] MEDS ORDERED: ONDANSETRON HCL 8 MG TABLET PO ONE (09:12)
[2017-10-13] MEDS ORDERED: ACETAMINOPHEN 325 MG TABLET PO ONE (09:12)
[2017-10-13] MEDS ORDERED: ACETAMINOPHEN 325 MG TABLET ONE (09:14)
--- NOTE | 2017-10-13 09:17 | ER Document Report ---
ED General - General Chief Complaint: Flank Pain Stated Complaint: POSSIBLE UTI Time Seen by Provider: 10/13/17 09:07 Mode of Arrival: Ambulatory Information source: Patient Notes: 72 yr old female who has 2-3 UTI a yr, had hx of breast ca with resection and radiation no chemo recently presents with suprapubic pressure, pain and right flank tenderness. pt denies any vomiting, admits to nausea and feeling warm TRAVEL OUTSIDE OF THE [place] IN LAST 30 DAYS: No - HPI Onset: Other - 4 days Onset/Duration: Persistent Quality of pain: Achy Severity: Mild Pain Level: 1 Associated symptoms: Fever, Nausea Exacerbated by: Other - urination Relieved by: Other - azo Similar symptoms previously: Yes Recently seen / treated by doctor: No - Related Data Allergies/Adverse Reactions: amoxicillin [Amoxicillin] Allergy (Verified 10/13/17 08:30) ciprofloxacin [From Cipro] Allergy (Verified 10/13/17 08:30) ciprofloxacin HCl [From Cipro] Allergy (Verified 10/13/17 08:30) digoxin [Digoxin] Allergy (Verified 10/13/17 08:30) diphenhydramine HCl [From Benadryl] Allergy (Verified 10/13/17 08:30) epinephrine [Epinephrine] Allergy (Verified 10/13/17 08:30) erythromycin base [Erythromycin Base] Allergy (Verified 10/13/17 08:30) iodine [Iodine] Allergy (Verified 10/13/17 08:30) losartan [Losartan] Allergy (Verified 10/13/17 08:30) methyldopa [Methyldopa] Allergy (Verified 10/13/17 08:30) naproxen [From Naprosyn] Allergy (Verified 10/13/17 08:30) NSAIDS (Non-Steroidal Anti-Inflamma [Nsaids] Allergy (Verified 10/13/17 08:30) Penicillins Allergy (Verified 10/13/17 08:30) propoxyphene HCl [From Darvon] Allergy (Verified 10/13/17 08:30) Seizure Sulfa (Sulfonamide Antibiotics) Allergy (Verified 10/13/17 08:30) Past Medical History - Social History Smoking Status: Never Smoker Cigarette use (# per day): No Chew tobacco use (# tins/day): No Smoking Education Provided: No Frequency of alcohol use: None Drug Abuse: None Family History: Reviewed & Not Pertinent Patient has suicidal ideation: No Patient has homicidal ideation: No - Past Medical History Cardiac Medical History: Reports: Hx Atrial Fibrillation, Hx Hypertension Denies: Hx Coronary Artery Disease, Hx Heart Attack Pulmonary Medical History: Denies: Hx Asthma, Hx Bronchitis, Hx COPD, Hx Pneumonia Neurological Medical History: Denies: Hx Cerebrovascular Accident, Hx Seizures Renal/ Medical History: Denies: Hx Peritoneal Dialysis GI Medical History: Reports: Hx Gastroesophageal Reflux Disease Musculoskeltal Medical History: Denies Hx Arthritis Past Surgical History: Reports: Hx Abdominal Surgery - hernia repair, Hx Appendectomy, Hx Breast Surgery - Lt tumor removed: benign, Hx Gynecologic Surgery - desending aorta "nicked" during vaginal , Hx Tonsillectomy, Hx Tubal Ligation, Hx Vascular Surgery - Lt leg - Immunizations Hx Diphtheria, Pertussis, Tetanus Vaccination: Yes - 3 YEARS AGO Review of Systems - Review of Systems Notes: REVIEW OF SYSTEMS: CONSTITUTIONAL : feeling warm, but otherwise "I feel great" EENT: Denies eye, ear, throat, or mouth pain or symptoms. Denies nasal or sinus congestion or discharge. Denies throat, tongue, or mouth swelling or difficulty swallowing. CARDIOVASCULAR: Denies chest pain. Denies palpitations or racing or irregular heart beat. Denies ankle edema. RESPIRATORY: Denies cough, cold, or chest congestion. Denies shortness of breath, difficulty breathing, or wheezing. GASTROINTESTINAL: Denies abdominal pain or distention. Denies nausea, vomiting , or diarrhea. Denies blood in vomitus, stools, or per rectum. Denies black, tarry stools. Denies constipation. admits ot right flank pain GENITOURINARY: admits ot burning on urination suprapubic pressure FEMALE GENITOURINARY: Denies vaginal bleeding, heavy or abnormal periods, irregular periods. Denies vaginal discharge or odor. MUSCULOSKELETAL: Denies back or neck pain or stiffness. Denies joint pain or swelling. SKIN: Denies rash, lesions or sores. HEMATOLOGIC : Denies easy bruising or bleeding. LYMPHATIC: Denies swollen, enlarged glands. NEUROLOGICAL: Denies confusion or altered mental status. Denies passing out or loss of consciousness. Denies dizziness or lightheadedness. Denies headache. Denies weakness or paralysis or loss of use of either side. Denies problems with gait or speech. Denies sensory loss, numbness, or tingling. Denies seizures. PSYCHIATRIC: Denies anxiety or stress. Denies depression, suicidal ideation, or homicidal ideation. ALL OTHER SYSTEMS REVIEWED AND NEGATIVE. PHYSICAL EXAMINATION: GENERAL: Well-appearing, well-nourished and in no acute distress. HEAD: Atraumatic, normocephalic. EYES: Pupils equal round and reactive to light, extraocular movements intact, conjunctiva are normal. ENT: Nares patent, oropharynx clear without exudates. Moist mucous membranes. NECK: Normal range of motion, supple without lymphadenopathy LUNGS: Breath sounds clear to auscultation bilaterally and equal. No wheezes rales or rhonchi. HEART: Regular rate and rhythm without murmurs ABDOMEN: Soft, minimallytender in the suprapubic region, right cva Female : deferred Musculoskeletal: Normal range of motion, no pitting or edema. No cyanosis. NEUROLOGICAL: Cranial nerves grossly intact. Normal speech, normal gait. Normal sensory, motor exams PSYCH: Normal mood, normal affect. SKIN: Warm, Dry, normal turgor, no rashes or lesions noted. Dictation was performed using [employer] voice recognition software Physical Exam - Vital signs Vitals: Temp Pulse Resp BP Pulse Ox 97.7 F 87 16 151/92 H 94 10/13/17 08:33 10/13/17 08:33 10/13/17 08:33 10/13/17 08:33 10/13/17 08:33 Course - Re-evaluation Re-evalutation: 10/13/17 09:15 pt symptoms are consistent with uti, UA pending 10/13/17 09:54 Urinalysis is positive for nitrates, patient will be started Keflex urine culture pending She otherwise looks well is no distress will be discharged home with close follow-up After performing a Medical Screening Examination, I estimate there is LOW risk for ACUTE APPENDICITIS, BOWEL OBSTRUCTION, ACUTE CHOLECYSTITIS, PERFORATED DIVERTICULITIS, INCARCERATED HERNIA, PANCREATITIS, PELVIC INFLAMMATORY DISEASE, PERFORATED ULCER,, thus I consider the discharge disposition reasonable. Also, there is no evidence or peritonitis, sepsis, or toxicity. I have reevaluated this patient multiple times and no significant life threatening changes are noted. The patient and I have discussed the diagnosis and risks, and we agree with discharging home with close follow-up with the understanding that symptoms and presentations can change. We also discussed returning to the Emergency Department immediately if new or worsening symptoms occur. We have discussed the symptoms which are most concerning (e.g., bloody stool, fever, changing or worsening pain, vomiting) that necessitate immediate return. - Vital Signs Vital signs: Temp Pulse Resp BP Pulse Ox 97.7 F 87 16 151/92 H 94 10/13/17 08:33 10/13/17 08:33 10/13/17 08:33 10/13/17 08:33 10/13/17 08:33 - Laboratory Laboratory results interpreted by me: 10/13/17 09:28 Urine Nitrite POSITIVE H Discharge - Discharge Clinical Impression: UTI (urinary tract infection) Qualifiers: Urinary tract infection type: acute cystitis Hematuria presence: without hematuria Qualified Code(s): N30.00 - Acute cystitis without hematuria Hypertension Qualifiers: Hypertension type: essential hypertension Qualified Code(s): I10 - Essential ( primary) hypertension Condition: Stable Disposition: HOME, SELF-CARE Instructions: Urinary Tract Infection ([facility]) Additional Instructions: Follow up with your physician tomorrow for further care or return to the ED IMMEDIATELY if symptoms worsen or new concerns occur. If you cannot afford to follow up with your primary care physician a list of low cost clinics have been provided at the end of your discharge papers as well. Prescriptions: Cephalexin Monohydrate [Keflex 500 mg Capsule] 500 mg PO BID 7 Days capsule
[2017-10-13 09:49] LABS: APPEARANCE,URINE CLEAR; BILIRUBIN,URINE NEGATIVE (NEGATIVE); GLUCOSE, URINE NEGATIVE (NEGATIVE); KETONES,URINE NEGATIVE (NEGATIVE); LEUKOCYTE ESTERASE,URINE NEGATIVE (NEGATIVE); NITRITE,URINE POSITIVE (NEGATIVE); PROTEIN,URINE NEGATIVE (NEGATIVE); URINE SPECIFIC GRAVITY 1.012; UROBILINOGEN,URINE NEGATIVE mg/dL (<2.0)
[2017-10-13 09:53] LABS: COLOR,URINE DARK YELLOW
[2017-10-13 10:01] VITALS: BP 152/85
== END 2017-10-13 10:00 | disposition home or self-care (01) ==
LOC: ER 08:28
DX: N30.00 Acute cystitis without hematuria (principal); I10 Essential (primary) hypertension; Z85.3 Personal history of malignant neoplasm of breast; Z92.3 Personal history of irradiation; Z88.0 Allergy status to penicillin; Z88.1 Allergy status to other antibiotic agents; Z88.8 Allergy status to other drugs, medicaments and biological substances; Z88.2 Allergy status to sulfonamides
CPT/HCPCS: 99284; 87086; 81001; A9270 ×2; S0119